=== PATIENT | female | born 1980 | race Caucasian/White ===

== ENCOUNTER 2023-09-15 17:03 | Observation (INO) | payer MEDICAID, SELFPAY ==
[2023-09-09 10:39] LABS: Magnesium 2.4 mg/dL (1.6-2.6)
[2023-09-09 18:23] LABS: Xtra Tube EP Lab EXTRA TUBE
--- NOTE | 2023-09-14 20:38 | HP.PCM_ITS ---
History and Physical Date of Admission: 09/15/23 HISTORY OF PRESENT ILLNESS 42 year old woman presents with complaints of bilateral macromastia as well as associated painful symptomatology of neck pain, thoracic back pain, bilateral shoulder pain from shoulder grooving from the weight of her breasts on her bra straps, and inframammary intertrigo for which she uses powders with minimal relief and without resolution of her symptomatology over the past 6 months. She denies any trauma to her breasts.? Denies any nipple discharge.? She has difficulty with activities of daily living especially chores around the house because of her painful symptomatology.?? She sees a Chiropractor for her back pain with minimal relief and without resolution of her symptomatology. She had a mammogram on 06/04/23 at [facility]. ? It showed the breast parenchyma is of scattered fibroglandular densities. There are no new suspicious abnormal masses, aggressive calcifications, or architectural distortion. We have received medical approval for her bilateral breast reduction mammaplasty. The surgery is scheduled for September 15, 2023. She presents today for a preop visit to answer any last minute questions regarding the surgery and to sign the office consent. PAST MEDICAL HISTORY Back problem PAST SURGICAL HISTORY H/O laparoscopy History of appendectomy ALLERGIES amoxicillin ciprofloxacin [From Cipro] codeine hydromorphone [From Dilaudid] Penicillins MEDICATIONS diazepam (Valium) FAMILY HISTORY Sister - Anxiety Father - Hypertension Mother - Hypertension Grandmother - Breast cancer Grandfather - Lung cancer SOCIAL HISTORY Smoking Status: Former smoker alcohol intake: never substance use type: does not use REVIEW OF SYSTEMS General - Denies fever and weight loss. Has fatigue. Eyes - Denies cataracts and glaucoma. ENT - Denies nasal congestion and sore throat. Endocrine - Denies excessive thirst and urination. ?Has family history of breast cancer. Skin - Denies suspicious lesions and skin cancer.? Has inframammary intertrigo for which she uses powders with minimal relief. Musculoskeletal - Denies joint pain, joint stiffness, weakness of muscles and anatoliy ints, and arthritis.? Has neck pain and back pain.? Her neck and back pain involve cervical and thoracic area. Has bilateral shoulder pain from shoulder grooving from the weight of her breasts on her bra straps. Neuro - Has headaches. Cardiovascular - Denies chest pain, fatigue, and shortness of breath with exertion. Psych - Denies anxiety. Has depression. Respiratory - Has shortness of breath.? Denies chronic cough.? Has sleep apnea.? Patient is a former smoker. Gastrointestinal - Denies nausea, vomiting, diarrhea, and constipation.? Has occasional blood in the stool. Hematologic - Denies abnormal bruising and bleeding. Genitourinary - Denies hematuria.? Has urinary frequency. PHYSICAL EXAMINATION General - Alert and oriented. Patient's bra size is an F cup.?? Her height is 70 inches.? Her weight is 286 lbs.? Her BMI is 41.1%.? Her BSA is 2.43m2. HEENT - PERRL. EOMI. Throat is clear. Neck - Supple.? No bony tenderness.? There is some pericervical soft tissue tenderness. Lungs- Clear to auscultation. Heart - Regular rate and rhythm. Breasts - Patient has bilateral macromastia.? No breast masses palpable. No axillary adenopathy noted.? The right breast is slightly larger than the left breast. Distance from midclavicular line on the left to the nipple is 35 cm and from the nipple to the inframammary fold is 14 cm. Distance from midclavicular line on the right to the nipple is 37 cm and from nipple to the inframammary fold is 14 cm. Nipple areolar complex diameter is 7 cm bilaterally.? No active inframammary intertrigo noted at this time. Abdomen - Soft and non distended. Back - No bony tenderness noted.? There is perivertebral soft tissue tenderness in the upper thoracic area. Extremities - FROM.? No axillary adenopathy.? Radial pulses are palpable. There is some bilateral shoulder tenderness with shoulder grooving from the weight of her breasts on her bra straps. Neuro - CN II-XII grossly intact. Psych - Normal and mood and affect. ASSESSMENT 1.? Bilateral macromastia. 2.? Neck pain. 3.? Thoracic back pain. 4.? Bilateral shoulder pain from shoulder grooving from the weight of the breasts on her bra straps. 5.? Inframammary intertrigo. 6.? Family history of breast cancer. 7. Former smoker. PLAN Discussed with the patient the procedure of breast reduction mammoplasty.? I feel this procedure would be beneficial in this patient as it would help relieve her painful symptomatology. She had a mammogram on 06/04/23 at [facility].? It showed the breast parenchyma is of scattered fibroglandular densities. There are no new suspicious abnormal masses, aggressive calcifications, or architectural distortion.? Postoperatively, she would get a breast reduction baseline mammogram at some point. Based on the Schnur Sliding Scale, I would remove approximately 1346 grams of breast tissue per side.? We will send the tissue to pathology for analysis to rule out carcinoma.? This sliding scale helps to determine the minimum required amount of tissue that needs to be removed from each breast in order for it to be considered a medical need. Discussed with patient the extent of scarring for this procedure.? The biggest risk for wound healing problems is the T-zone area.? Usually wound care and sometimes antibiotics are necessary for healing in this area. ? She would have drains in for a few days depending on the amount of tissue that is removed.? She will be on antibiotics until the drains are removed. For this patient, the final breast size ranges from a C cup to a low D cup.? Patient voices understanding. Ideally, she would like to be a C cup. Surgery will be done under general anesthesia with a surgical observation overnight stay in the hospital. We have received medical approval for the bilateral breast reduction mammaplasty. The surgery is scheduled for September 15, 2023. Patient was informed of the risks and complications of the procedure including alternatives to surgery.? These were discussed with her personally.? She voices understanding and wishes to proceed. Some of the risks and complications were included in a form from the [employer]. Potential risks and complications included but not inclusive of bleeding, infection, seroma, hematoma, bruising, swelling, prolonged need for drains, loss of sensation to skin, partial or complete loss of skin flap and/or nipple, wound breakdown, need for wound care, poor scarring, poor aesthetic outcome, intra operative cardiac or neurologic events, DVT, PE, and reaction to anesthesia. She had some last minute questions regarding the surgery. These questions were answered personally and to her satisfaction. She signed the office consent. She states she gets nervous before surgery and has trouble sleeping. Sent a script to her Pharmacy for Valium to be taken at night starting 3 nights before the surgery.
[2023-09-15] VITALS (11 sets, daily range): BP systolic 99–148; BP diastolic 70–96; PULSE 65–120; RESP 16–18; TEMP 35.9–37.6; O2SAT 94–100; BMI 41.7; BMI 42.3
[2023-09-15 06:00] LABS: Internal QC Validated? YES +Cl - CLEAR BKGD; Pregnancy, Urine Negative Negative
[2023-09-15] MEDS: Magnesium 1 GM over 15 mins IV (06:06)
[2023-09-15] MEDS: Lactated Ringers 1,000 ML 40 ML IV (06:06)
[2023-09-15] MEDS: Scopolamine 1mg/72hr Patch 1 PATCH TD (06:25)
[2023-09-15] MEDS: Gabapentin 600 MG Tablet PO (06:25)
[2023-09-15] MEDS: Acetaminophen 500 MG Tablet 1000 MG PO ×2 (06:25→21:08)
[2023-09-15 06:39] LABS: Bedside Glucose 140 mg/dL (74-106)
--- NOTE | 2023-09-15 07:30 | BR_PTH ---
PATIENT: TERESA LUCERO LOC: [facility]3 U#:[id number] AGE/SX: 42/F ROOM: IA318 RE09/15/[address]: Dr. Gerardo Carlton MD : 1980 BED: 1 DIS: 09/16/2023 SPEC #: [id number] RECD: 09/15/23 15:55 STATUS: SELWYN RERay #: [id number] DANISH: 09/15/23 07:[address]: Gerardo Carlton DEPT: SURGICAL PATHOLOGY RECD BY: Maki Peres ENTERED: 09/16/23 09:45 SP TYPE: MAMOPLASTY OTHR DR: Dr. Smooth Serrano MD No Primary Care Phys Tissues: A - Right breast, NOS B - Left breast, NOS Procedures: Surgery Specimen Level IV HEADER OPERATION: ERAS, bilateral breast reduction mammoplasty PRE-OP DIAGNOSIS: Bilateral macromastia, neck and thoracic back pain, bilateral shoulder pain TISSUE SUBMITTED: A - Right breast tissue, B - Left breast tissue MICROSCOPIC DIAGNOSIS A. Right breast tissue, breast reduction mammoplasty: Fragments of benign breast tissue (1450 gm). Skin, no pathologic diagnosis. B. Left breast tissue, breast reduction mammoplasty: Fragments of benign breast tissue (1400 gm). Skin, no pathologic diagnosis. SJ:dipak 09/17/2023 MICROSCOPIC DESCRIPTION Slides are reviewed. GROSS DESCRIPTION A - Received in fixative is one container designated right breast tissue. The specimen consists of multiple irregular fragments of yellow-sánchez fibrofatty tissue with adherent fragments of skin ranging in size from 1.0 to 15.0 and weighing 1450 gm. No cutaneous lesions are identified. Sections reveal mostly yellow cut surfaces with focal white fibrous streaks. No mass lesions are identified. [employer] sections are submitted in five cassettes. B - Received in fixative is one container designated left breast tissue. The specimen consists of multiple irregular fragments of yellow-sánchez fibrofatty tissue with adherent fragments of skin ranging in size from 1.0 to 26.0 and weighing 1400 gm. No cutaneous lesions are identified. Sections reveal mostly yellow cut surfaces with focal white fibrous streaks. No mass lesions are identified. [employer] sections are submitted in five cassettes. / AM:dipak 09/16/2023 TC:5 CPT: 05018 x2
[2023-09-15] MEDS: Clindamycin 900 MG/50 ML BAG 75 MG IV (07:35)
[2023-09-15] MEDS: Methylene Blue 1% 100 MG/10 ML VIAL (08:25)
[2023-09-15] MEDS: Lactated Ringers 1,000 ML 60 ML IV ×2 (14:00→19:58)
--- NOTE | 2023-09-15 15:08 | OP.PCM_ITS ---
Problems Associated Problem List Diagnoses (1) Macromastia: (2) Chronic neck pain: (3) Chronic thoracic back pain: (4) Right shoulder pain: (5) Left shoulder pain: (6) Intertrigo: (7) Family history of breast cancer: (8) Former smoker: Report of Operation Date of Procedure: 09/15/23 Pre-Operative Diagnosis: 1. Bilateral macromastia. 2. Neck pain. 3. Thoracic back pain. 4. Bilateral shoulder pain from shoulder grooving from the weight of the breasts on her bra straps. 5. Inframammary intertrigo. 6. Family history of breast cancer. 7. Former smoker. Post-Operative Diagnosis: Same. Surgery/Procedure Performed:: Bilateral Breast Reduction Mammaplasty. Description of Surgical Findings:: 42 year old woman presents with complaints of bilateral macromastia as well as associated painful symptomatology of neck pain, thoracic back pain, bilateral shoulder pain from shoulder grooving from the weight of her breasts on her bra straps, and inframammary intertrigo for which she uses powders with minimal relief and without resolution of her symptomatology over the past 6 months. She denies any trauma to her breasts.? Denies any nipple discharge.? She has difficu lty with activities of daily living especially chores around the house because of her painful symptomatology.?? She sees a Chiropractor for her back pain with minimal relief and without resolution of her symptomatology. She had a mammogram on 06/04/23 at [facility]. ? It showed the breast parenchyma is of scattered fibroglandular densities. There are no new suspicious abnormal masses, aggressive calcifications, or architectural distortion. We have received medical approval for her bilateral breast reduction mammaplasty. The surgery is scheduled for September 15, 2023. She had preop questions that were answered personally and to her satisfaction regarding her upcoming surgery. Patient was informed of the risks and complications of the procedure including alternatives to surgery. These were discussed with the patient personally. Patient voices understanding and wishes to proceed. Some of the risks and complications were included in a form from the [employer]. Potential risks and complications included but not inclusive of bleeding, infection, seroma, hematoma, bruising, swelling, prolonged need for drains, loss of sensation to skin, partial or complete loss of skin flap and/or nipple, wound breakdown, need for wound care, poor scarring, poor aesthetic outcome, intra operative cardiac or neurologic events, DVT, PE, and reaction to anesthesia. IV Fluids - 2500 ml. Urine Output - 900 ml. Tissue removed from the left breast was 1210 grams. Tissue removed from the right breast was 1312 grams. I used Interfyl Placental Connective Tissue Matrix, (I used 2 syringes, one in each breast). Catalog Number - [id number]. Lot Number - [id number]. Expiration - September 05, 2031, (Combined both syringes and injected half in each breast). Catalog Number - [id number]. Lot Number - [id number]. Expiration - December 09, 2031, (Combined both syringes and injected half in each breast). I used Edgar absorbable hemostat, (I used 4 vials, 2 in each breast). Reference Number - [id number]. Lot Number - [id number]. Expiration - March 26, 2028, (I used one vial in Left Breast). Reference Number - [id number]. Lot Number - [id number]. Expiration - March 26, 2028, (I used one vial in Left Breast and 2 vials in the Right Breast). Surgeon: Gerardo Carlton MD pouch making machine operator: Jose Luis Pena RNFA pouch making machine operator: Guera Hutton RNFA Type of Anesthesia: General Anesthesiologist: Mark Foster MD and Toni Lew CRNA and Germaine Arreaga CRNA Specimen's removed: 1. Left breast tissue to Pathology. 2. Right breast tissue to Pathology. Drains: Jasmeet x2 (one in each breast). Estimated Blood Loss (mL): 150. Fluids Replaced: 3400 ml (IV Fluids 2500 ml, Urine Output 900 ml). Description of Procedure: In the preop area, the patient was placed in the sitting position and preoperative markings were made.? The sternum midline was marked down to the umbilicus.? The inframammary folds were marked bilaterally.? The midclavicular line was then marked down to the nipple, then from the nipple to the inframammary fold.? The inframammary fold was then superimposed on the midclavicular line and I made a point 1 cm below that to be the new position of the nipple-areolar complex.? 7 cm lines were then drawn divergent from that point to encompass the nipple-areolar complex.? The distance between the divergent lines was 10 cm.? The patient was then placed in the supine position and taken to the operating room and placed under general anesthesia and her breasts were prepped and draped in usual fashion.? Ioban draping was also used.? SCDs were placed for DVT prophylaxis.? Perioperative antibiotics were given intravenously.? A Rosa catheter was also placed. ? I then maura straight lines down from the lines drawn divergent around the nipple-areolar complex down to the inframammary fold.? The width of the pedicle is 10 cm.? I then used a 45 mm circular template for a new size of the nipple-areolar complex.? The central markings were infiltrated with Xylocaine and epinephrine.? The central skin was then deepithelialized.? I started on the left side first and then went to the right side.? I then mobilized medial and lateral breast flaps at the level of Tim's fascia down to about 1-2 cm from the chest wall.? This was met in the midline of the breast with dissection at the level of Tim's fascia down to about 1-2 cm from the chest wall.? Once the central breast mound pedicle was from the skin envelope, the reduction was then begun.? Most of the tissue was removed from the superior aspect of the breast and the lateral aspect of the breast.? I then sutured the leading edge of the medial and lateral breast flaps to the midline of the inframammary fold with 2-0 Vicryl suture.? The vertical incision was approximated using surgical clips.? The excess tissue from the medial and lateral breast flaps were excised and the horizontal incision was approximated using surgical clips.? The patient was then placed in a sitting position.? Using a vertical limb length of 5 cm, I maura the new position of the nipple-areolar complexes on both breasts.? They were in good position on the central aspect of the breast mound.? Good symmetry was noted between the left breast and the right breast.? Good shape and contour and projection were noted and appeared clinically to be a C cup.? The patient was then placed back in the supine position and the surgical clips were removed.? The breast wounds were then irrigated with Irrisept 0.05% Chlorhexidine solution which was followed by saline irrigation.? Hemostasis was obtained using electrocautery.? The tissue removed from the left breast was 1210 grams.? The tissue removed from the right breast was 1312 grams.? The tissue that was removed from the breasts was sent to Pathology for analysis to rule out carcinoma. ? After hemostasis was obtained using electrocautery, I then sprayed Edgar absorbable hemostat into both breast wounds to minimize seroma formation.? I used two vials for each side.? I then placed a size 15 Jasmeet drain into each breast wound to be brought through the lateral aspect of the horizontal incision.? I then closed the breast wounds by first approximating the leading edge of the medial and lateral breast flaps to the midline of the inframammary fold with 2-0 Vicryl suture.? I then injected Interfyl placental connective tissue matrix into both wounds at the level of the Tzone to help with the healing process.? There were 2 syringes of different amounts. I combined both syringes and injected half in each breast. The deep dermis and subcutaneous tissue of the vertical incision and the horizontal incisions were approximated using 3-0 Monocryl interrupted sutures.? ? The horizontal incision was then approximated using 3-0 Vlock unidirectional barbed running subcuticular suture.? I also placed a few 4-0 Prolene vertical mattress interrupted sutures at the level of the Tzone.? The vertical incision was then closed on the skin with 4-0 Prolene interrupted sutures.? With a vertical limb length of 5 cm, I maura a circular incision where the nipple-areolar complex would be brought through this keyhole incision.? Incisions were made and the nipple areolar complex was brought through the keyhole incision.? The nipple- areolar complex was secured to the breast skin using 3-0 Monocryl interrupted sutures for deep dermis and subcutaneous tissue.? The skin was approximated using 4-0 Prolene simple interrupted sutures.? This was then covered with Histoacryl skin tissue adhesive.? I sutured the drains to the skin using 3-0 nylon pursestring suture.? At the end of the procedure, the breasts were soft with no evidence of vascular compromise.? No evidence of hematomas were noted.? The nipples were viable.? I then dressed the breasts with a Kerlix gauze and a compression surgical bra.? Then patient tolerated the procedure well and will be sent to the recovery room in satisfactory condition.? She will be admitted for surgical observation overnight stay.? She will go home tomorrow once she is tolerating oral pain medication.? I will remove the drains in a few days.? She will keep her head elevated during the initial postoperative period.? She will be maintained on a lifting restriction. The operative blood loss was about 150 ml.? Post-discharge, she may get a compression sports bra as well.? She will have the Rosa removed in the morning.? She will be sent home on antibiotics and pain medicine.? Sutures will be removed in 1-2 weeks. Grafts/Implants Used: Interfyl placental connective tissue matrix x2, Edgar Procedure Start Time: 08:30 Procedure Stop Time: 15:37 Complications None. Admit VTE Documentation VTE Present on Admission: No VTE Mechan Device Prophylaxis: SCD's VTE Pharm Prophylaxis ordered?: Yes Addendum Addendum: Surgery Charges CPT - 16035-02 ICD-10 - N62, M54.2, M54.6, M25.511, M25.512, L30.4, Z80.3, Z87.891 41012 N62, M54.2, M54.6, M25.511, M25.512, L30.4, Z80.3, Z87.891
[2023-09-15] MEDS: Lidocaine 1% /Epi 1:100 (20ml) 20 ML Vial (15:16)
--- NOTE | 2023-09-15 21:00 | NURSING ---
This nurse assisted patient to standing position and patient walked around the bed to the chair with a stand by assist.
[2023-09-15] MEDS: Enoxaparin 40 MG/0.4 ML Syringe SC (21:07)
[2023-09-15] MEDS: Gabapentin 100 MG Capsule 200 MG PO (21:07)
[2023-09-15] MEDS: Clindamycin 600 MG/50 ML BAG 100 MG IV (21:08)
[2023-09-15] MEDS: Docusate Sodium 100 MG Capsule PO (21:08)
[2023-09-15] MEDS: Lactated Ringers 1,000 ML 999 ML IV (22:40)
[2023-09-15] MEDS: Lactated Ringers 1,000 ML 100 ML IV (23:38)
[2023-09-16] MEDS: Acetaminophen 500 MG Tablet 1000 MG PO ×3 (02:25→12:21)
[2023-09-16 02:29] VITALS: BP 120/69; PULSE 107; RESP 16; TEMP 37.2; O2SAT 94
[2023-09-16] MEDS: Clindamycin 600 MG/50 ML BAG 100 MG IV ×2 (05:54→12:24)
[2023-09-16 07:04] LABS: Hematocrit 35.6 % (37-47); Mean Corp Hgb Conc 33.7 g/dL (32-36); Mean Corpuscular Hgb 32.3 pg (27.0-32.0); Mean Corpuscular Volume 95.7 fL (81-99); Mean Platelet Vol. 12.4 fl (6.2-12.0); Platelet Count 127 K/mm3 (150-450); RBC Distribution Width CV 13.6 % (11.6-14.6); RBC Distribution Width SD 47.8 fl (35.1-43.9); Red Blood Count 3.72 M/mm3 (4.2-5.4); White Blood Count 8.9 K/mm3 (4.4-11.0)
[2023-09-16 07:40] LABS: Anion Gap 3 (5-15); BUN 10 mg/dL (7-18); BUN/Creat Ratio 14.8 RATIO (10-20); Calcium,Total 7.8 mg/dL (8.5-10.1); Chloride 110 mmol/L (98-107); Creatinine, Serum 0.68 mg/dL (0.55-1.02); EST Glomerular Filtration Rate 102 mL/min (>60); Est Glom Filt Rate - Afr Amer 124 mL/min (>60); Estimated Creatinine Clearance 118.92 ml/min; Glucose 107 mg/dL (74-106); Potassium 3.7 mmol/L (3.5-5.1); Prealbumin 18.2 mg/dL (20.0-40.0); Sodium Level 141 mmol/L (136-145)
[2023-09-16 07:45] VITALS: BP 136/82; PULSE 92; RESP 18; TEMP 36.8; O2SAT 99
[2023-09-16] MEDS: Docusate Sodium 100 MG Capsule PO (07:55)
[2023-09-16] MEDS: Enoxaparin 40 MG/0.4 ML Syringe SC (07:55)
[2023-09-16] MEDS: Gabapentin 100 MG Capsule 200 MG PO ×3 (07:59→16:54)
[2023-09-16 08:06] VITALS: PULSE 92
--- NOTE | 2023-09-16 08:28 | NURSING ---
Moe taken out at 0800 this morning. Pt encouraged to use her I.S and PEEP and also sitting in chair and ambulating VS laying in bed. Pt understands.
[2023-09-16 09:07] VITALS: O2SAT 95
[2023-09-16] MEDS: 0.9% Normal Saline (250mL Bag) 250 ML 15 ML IV (12:24)
[2023-09-16 15:56] VITALS: BP 132/66; PULSE 94; RESP 18; TEMP 36.8; O2SAT 96
--- NOTE | 2023-09-16 15:59 | PN.SURG_ITS ---
Subjective Subjective Postop #1 Patient states she is having minimal pain. Objective Data Objective Data Vital Signs: Vital Signs Temp Pulse Resp BP Pulse Ox O2 Del Method O2 Flow Rate 98.2 F 94 18 132/66 H 96 Room Air 4 09/16/23 15:56 09/16/23 15:56 09/16/23 15:56 09/16/23 15:56 09/16/23 15:56 09/16/23 15:56 09/15/23 16:40 Oxygen Flow Rate (L/min) 4 Oxygen Delivery Method Room Air Weight: 295 lb 3.183 oz Body Mass Index (BMI) 42.3 Intake & Output: Intake and Output for Last 24 Hours 09/14/23 09/15/23 09/16/23 23:59 23:59 23:59 Intake Total 2791 / 2791 1646.00 / 1646.00 Output Total 2055 / 3555 2186 / 2186 Balance 736 / -764 -540.00 / -540.00 Right Jasmeet drain - 178 ml Left Jasmeet drain - 88 ml Lab / Micro Data Attestation: I reviewed the patient's lab results. 09/16/23 06:45 09/16/23 06:45 Labs: Laboratory Results - last 24 hr 09/16/23 06:45: WBC 8.9, RBC 3.72 L, Hgb 12.0, Hct 35.6 L, MCV 95.7, MCH 32.3 H, MCHC 33.7, RDW Std Deviation 47.8 H, RDW Coeff of Candace 13.6, Plt Count 127 L, MPV 12.4 H, Sodium 141, Potassium 3.7, Chloride 110 H, Carbon Dioxide 28.0, Anion Gap 3 L, BUN 10, Creatinine 0.68, Estim Creat Clear Calc 118.92, Est GFR (MDRD) Af Amer 124, Est GFR (MDRD) Non-Af 102, BUN/Creatinine Ratio 14.8, Glucose 107 H , Calcium 7.8 L, Prealbumin 18.2 L Physical Exam Const oriented x3 and no apparent distress HEENT normocephalic Eyes General Eye: normal appearance of both eyes Resp normal respiratory effort Cardio regular rate Extremity normal to inspection Skin Skin Narrative: Operative dressing removed. Breasts are soft and symmetrical, good breast contour. Nipples are viable. Incisions are dry and intact. Mild bruising on the breasts. Assessment & Plan Assessment/Plan (1) Macromastia: (2) Back problem: (3) Chronic neck pain: (4) Chronic thoracic back pain: (5) Intertrigo: (6) Family history of breast cancer: (7) Former smoker: (8) Acute postoperative pain: PLAN: Plan Patient is doing well. She is having minimal pain. Operative dressing removed. Breasts are soft and symmetrical, good breast contour. Nipples are viable. Incisions are dry and intact. Mild bruising on the breasts. She is to keep compression on at all times. Instructed to keep track of Jasmeet drains amount and bring with her to her follow up appointment next week. She will continue Clindamycin until the drains are removed. Prealbumin 18.2. Encouraged increase protein intake to help with wound healing. Instructed her to keep her head elevated at all times. Percocet (28 tabs) prescribed for pain. PDMP reviewed. She will follow up in the office on 09/23/23.
--- NOTE | 2023-09-16 16:00 | DCINST_ITS ---
Discharge Instructions Diet Discharge Diet: No restrictions (High protein diet to help with wound healing) Activity Discharge Activity: May Not Shower May resume sexual activity in: 10-14 days Additional Activity Instructions:: Keep head elevated at all times. 10-15 lb weight lifting restriction Dressing / Incision Call your doctor if your incision/area has: Sudden Increased Bleeding, Increased Pain/ Swelling, Increased Redness and Foul Smelling Discharge Call your doctor if you observe: Fever of 101 or Higher, Inability to urinate, Inability to have a bowel movement, Shortness of breath, Chest pain, Calf discomfort and Uncontrolled pain Change Dressing in: leave in place till F/U Drain: Suction Additional Dressing/Incision Instructions:: Keep incision dry and intact and covered. Wear compression at all times. Keep track of drainage from Jasmeet drains. Follow Up Care Please Follow Up With: Gerardo Carlton MD When: 09/23/23 at 10:00 am. Test Results: Test results from this visit will be discussed in further detail at your follow- up appointment, if applicable. Discharge Plan Admission Admit Date/Time: 09/15/23 17:03 Attending Provider: Gerardo Carlton Primary Care Provider: Care Physician,No Primary Consulting Providers: Smooth Serrano Discharge Orders/Prescriptions Prescriptions: New oxycodone-acetaminophen [Percocet] 5-325 mg tablet 1 tab PO Q6H PRN (Reason: pain (scale score 7-10)) 7 Days Qty: 28 0RF clindamycin HCl 300 mg capsule 300 mg PO TID 7 Days Qty: 21 0RF Acidophilus-Pectin 75 million cell -100 mg capsule 1 cap PO DAILY 10 Days Qty: 10 0RF Discontinued diazepam [Valium] 5 mg tablet 5 mg PO QHS PRN (Reason: sleep) Qty: 3 0RF Rx Instructions: 3 tabs (three) Start the medication 3 nights prior to her upcoming surgery Disposition Disposition (needs filled in before D/C Order can be placed): Home, Self Care
--- NOTE | 2023-09-16 16:46 | CASEMGMT ---
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 Pt denies any homegoing needs at this time.
== END 2023-09-16 17:05 | disposition home or self-care (01) ==
LOC: MS3 09-16 08:53 → SDC 09-16 10:05 → MS3 09-16 10:05
PROVIDERS: Anesthesiology; Admitting Provider Surgery; Referring Provider Surgery; Visit Provider Surgery
PROC: 0H0U0ZZ Alteration of Left Breast, Open Approach (ICD-10-PCS; CPT 19318; principal; 2023-09-15 07:15)
DX: N62 Hypertrophy of breast (principal); G89.29 Other chronic pain; M54.6 Pain in thoracic spine; M25.511 Pain in right shoulder; M25.512 Pain in left shoulder; Z87.891 Personal history of nicotine dependence; M54.2 Cervicalgia; Z80.3 Family history of malignant neoplasm of breast; L30.4 Erythema intertrigo
CPT/HCPCS: 19318; 00402; 36415; 80048; 81025; 82962; 83735; 84134; 85027; 88305; 94668; 96361; 96365; 96366; 96372; 97802; 99221; 99252; J7050; J7120; G0378; G0463; J2405; J3475

== ENCOUNTER → 2023-10-19 | Outpatient (CLI) | payer MEDICAID, SELFPAY | END | disposition home or self-care (01) | LOC: LAB 12:06 | PROVIDERS: Visit Provider Nurse Practitioner Family | DX: T81.89XA Other complications of procedures, not elsewhere classified, initial encounter (principal); Z98.890 Other specified postprocedural states | CPT/HCPCS: 87070; 87075; 87077; 87205 ==